=== PATIENT | female | born 1975 | race Caucasian/White ===

== ENCOUNTER 2016-12-02 23:24 | Observation (INO) | payer BC ==
[~2016-12-02] VITALS: Ht 170.2 cm; Wt 132.0 kg
[2016-12-03] MEDS ORDERED: SYNTHROID DPS0.2 MG PO (16:05)
[2016-12-03] MEDS ORDERED: ZOLOFT DPS50 MG PO (16:05)
[2016-12-03] MEDS ORDERED: NEURONTIN DPS300 MG PO (16:05)
[2016-12-03] MEDS ORDERED: BYSTOLIC5 MG PO (16:06)
[2016-12-03] MEDS ORDERED: BUSPAR5 MG PO (16:06)
[2016-12-03] MEDS ORDERED: NEXIUM40 MG PO (16:06)
--- NOTE | 2016-12-04 10:11 | CO ---
ADMIT: 12/03/2016 RM/LOC: 417 [facility] MR#: [id number] [address] [address] [place] [address] Consultation SEX: F AGE: 41 : 1975 DATE OF CONSULTATION: 12/03/2016 ATTENDING PHYSICIAN: Jimmy Nguyen CONSULTING PHYSICIAN: Jian Bray MD CHIEF COMPLAINT: Chest pain. HISTORY OF PRESENT ILLNESS: The patient is a 41-year-old female, we are familiar with her history of palpitations and presyncopal symptoms in the past. She was seen by us in clinic recently and had her Bystolic continued. She states that she has been in her usual state of health until last night. She had a sudden episode of abdominal pain and nausea, which was then followed by some sweating and chest discomfort. She also noticed that she was short of breath, called the ambulance, and was brought to the emergency room. There she received some nitroglycerin, which she states made her feel better. All in total, her symptoms lasted a little less than an hour. She is now having no further symptoms. She states that she has had similar episodes like this in the past, but this was worse than usual. Because of her risk factors for heart disease, she was concerned this may be a heart attack and came to the emergency room. She had no other complaints. The patient does have several risk factors for coronary disease including a history of some hypertension and family history. She had normal heart catheterization in 2009. She has also had a longstanding history of palpitations and presyncopal spells. She had no other complaints today. PAST MEDICAL HISTORY: Significant for: 1. Syncope and presyncope status post loop recorder placement in the past with loop recorder removal in 2014. 2. History of palpitations. 3. History of anxiety. 4. Asthma. 5. Back pain. 6. Bipolar disorder. 7. Crohn disease. 8. Depression. 9. Reflux. 10.Chronic headaches. 11.Hypothyroidism. 12.Left knee surgery. 13.Ventral hernia repair. 14.Colonoscopy. 15.Cholecystectomy. 16.History of . 17.Ectopic surgery. 18.Bladder sling surgery. ALLERGIES AND INTOLERANCES: Include Dilaudid, morphine, iodine, and ADMIT: 12/03/2016 RM/LOC: 417 [facility] MR#: [id number] [address] [address] [place] [address] Consultation SEX: F AGE: 41 : 1975 erythromycin. HOME MEDICATIONS: 1. Buspirone 7.5 mg twice daily. 2. Bystolic 2.5 mg. 3. Gabapentin 300 mg daily. 4. Medroxy prednisone 10 mg 10 days of each month. 5. Nexium 40 mg daily. 6. Synthroid 0.175 mg daily. 7. Vitamin D3 one tablet daily. 8. Zoloft 150 mg daily. FAMILY HISTORY: Significant for father who has had coronary artery disease. SOCIAL HISTORY: The patient has 1 child and has a previous history of smoking. She has occasional alcohol use. REVIEW OF SYSTEMS: GENERAL: Denies fever, chills, sweats, rash, or weight loss. She does have some occasional fatigue. EYES: Denies double vision, blurred vision, cataracts, or glaucoma. ENT: Denies hearing loss or problems with nose, mouth or throat. PULMONARY: Denies cough, sputum production, asthma, emphysema or bronchitis. Denies snoring loudly, wakefulness at night, or fatigue upon awakening. Some shortness of breath and some chest pain. GASTROINTESTINAL: Denies heartburn or difficulty swallowing. No change in bowel habits. Denies dark or bloody stools. No history of ulcers, hiatal hernia, or gallbladder or liver disease. Some nausea. She has some abdominal pain. GENITOURINARY: Denies hematuria, nocturia, urinary tract infection, or kidney stones. Denies history of renal insufficiency or failure. She has some dysuria. MUSCULOSKELETAL: Denies history of arthritis or gout. Denies muscle or joint pains. She has some arm and leg pains. ENDOCRINE: Denies history of thyroid dysfunction or diabetes. HEMATOLOGIC: Denies history of anemia, easy bruising, or cancer. NEUROLOGIC: Denies chronic headaches, dizziness, syncope, stroke, seizures or numbness or tingling. PSYCHIATRIC: Denies history of mental illness or feelings of depression. PHYSICAL EXAMINATION: VITAL SIGNS: Blood pressure was 106/57, heart rate 50, respirations 16, temperature 96.9 degrees Fahrenheit. SKIN: [place], warm and dry. EYES: Sclerae clear. No xanthelasmas. ENT: Oral mucosa is pink and moist. No jugular venous distention or carotid bruits. CHEST: Respirations are even and unlabored. Lungs are clear to auscultation. HEART: Regular rate and rhythm. Normal S1, S2. No murmurs, rubs or gallops. ABDOMEN: Soft and nontender. ADMIT: 12/03/2016 RM/LOC: 417 [facility] MR#: [id number] [address] [place] [id number] [place] [address] Consultation SEX: F AGE: 41 : 1975 MUSCULOSKELETAL: Gait is normal. EXTREMITIES: Peripheral pulses palpable. No clubbing, cyanosis or edema. PSYCHIATRIC: Alert and oriented. Mood and affect are appropriate. ASSESSMENT: 1. Chest pain. 2. Hypertension. 3. Possible vagal reaction. PLAN: In discussing this case with the patient, her symptoms make me suspicious more for vagal reaction than a cardiac cause. Generally starts with abdominal pain or nausea and then proceeds to sweating and chest pain. She has had a previous heart catheterization in the past which was normal. Her enzymes to this point have been negative as has her EKG. My plan will be to see if the 3rd set of enzymes are negative and if they are, she can be discharged home with an outpatient echocardiogram. We will then see her in followup and decide if a stress test is warranted. With a normal heart catheterization in the past and her young age, I think it is less likely that she would have developed coronary disease at this point in her life. Jian Bray MD/ candelario JOB #: [id number] CC: Jimmy Nguyen, Attending Physician Jimmy Nguyen, Family Physician Jimmy Nguyen MD
--- NOTE | 2016-12-04 13:56 | NUR ---
Pt was a SAD person referral and was discharged before social work spoke with pt. SWS called and followed up with pt today. Pt admits to attempting to harm self when she was a teenager. Deny any attempts since then. Pt does not see a mental health professional. Pt states she takes two anti-depressant medications. Deny current thoughts of self harm.
--- NOTE | 2016-12-05 07:42 | ER ---
ADMIT: 12/03/2016 RM/LOC: 417 [facility] MR#: [id number] [address] [address] [place] [address] Emergency Room Report SEX: F AGE: 41 : 1975 DATE: 12/02/2016 TIME: 4 Please refer to my T-sheet for complete H and P. HISTORY OF PRESENT ILLNESS: Briefly, the patient is a 41-year-old who comes in with chest pain. It came on all of a sudden about 40 minutes ago, it radiated up to her neck. She felt sweaty, short of breath, pressure-type pain. Rated it 4/10. She was given nitroglycerin and aspirin and her pain was resolved by the time she gets here. PAST MEDICAL HISTORY: She has history of irregular heartbeat, high blood pressure, hypothyroid. FAMILY HISTORY: Heart disease. She does not smoke. PHYSICAL EXAMINATION: VITAL SIGNS: Her blood pressure is 117/64, pulse 55, respirations 20, temp 96.9, saturating 96%. GENERAL: She is in no acute distress. HEENT: Grossly normal. LUNGS: Clear. HEART: Regular. ABDOMEN: Soft. SKIN: No rash. EMERGENCY DEPARTMENT COURSE: EKG was sinus rhythm, rate 47, no changes. Chest x-ray negative. CBC normal. Chemistries normal except potassium 3.4, magnesium 1.7. Cardiac enzymes negative. She remained pain-free, stable. We talked to Dr. Nguyen on-call, will admit to the hospital. ASSESSMENT: Chest pain, slightly atypical with multiple risk factors. PLAN: Admit to the hospital. Wilber Ricardo MD/ candelario JOB #: [id number] CC: Jimmy Nguyen MD, Attending Physician Jimmy Nguyen MD, Family Physician
--- NOTE | 2016-12-06 08:07 | HP ---
ADMIT: 12/03/2016 RM/LOC: 417 [facility] MR#: [id number] [id number] [place], [place] [address] [place] [address] History and Physical SEX: F AGE: 41 : 1975 DATE OF SERVICE: 12/03/2016 CHIEF COMPLAINT: Chest pain. HISTORY OF PRESENT ILLNESS: The patient is a 41-year-old white female, who normally sees Brittni Bird, nurse practitioner in our office. She states that she was getting ready for work last night around 11 p.m. and began to have chest pressure. She described this as a pressure in the left side of her chest which radiated up into the left side of her neck. Along with this chest pressure, she had dizziness, weakness, diaphoresis, nausea, and vomiting. She was worried about these symptoms because they did not go away and called 911. The squad came to her house. She had significant improvement and resolution of her symptoms with aspirin and sublingual nitroglycerin en route to the emergency room. Evaluation in the emergency room included an EKG that did not show any acute ischemic changes and a set of cardiac enzymes that were negative. Chest x-ray was negative as well. Because of her multiple risk factors for coronary artery disease, including a strong family history of heart disease, she was kept for further evaluation and cardiology evaluation. PAST MEDICAL HISTORY: Illnesses; the patient has history of hypothyroidism, depression, anxiety, hypertension, acid reflux, previous tachycardia, mild asthma, and obesity. MEDICATIONS: Include: 1. Levothyroxine 200 mcg daily. 2. Gabapentin 300 mg daily. 3. Zoloft 150 mg daily. 4. Buspirone 7.5 mg daily. 5. Bystolic 2.5 mg daily. 6. Nexium 40 mg daily. SURGERIES: The patient has had previous bladder sling, , ectopic , left ACL knee surgery, hernia repair x2, and gallbladder removal. ALLERGIES: IV CONTRAST AND ADHESIVE TAPE. SOCIAL HISTORY: The patient lives in [place] with her [place]. She works full-time at [employer]. She is a previous smoker who quit 2 years ago but had been smoking for 20 years prior to that. She rarely drinks alcohol and does not use drugs. FAMILY HISTORY: Significant coronary artery disease history with her father having an HI around age 40. She also has a sister who had heart surgery around age 43. There is a history of hypertension and high cholesterol in the family as well. REVIEW OF SYSTEMS: HEENT: Denies headache, blurry vision, ear pain, sinus symptoms, or difficulty swallowing. CARDIAC: History of tachycardia and hypertension and the above-mentioned ADMIT: 12/03/2016 RM/LOC: 417 [facility] MR#: [id number] [address] [address] [place] [address] History and Physical SEX: F AGE: 41 : 1975 chest pain. No prior known history of coronary artery disease. No palpitations at this time and currently no chest pain at this time. RESPIRATORY: No shortness of breath, wheezing, cough, or prior lung disease other than mild asthma. GASTROINTESTINAL: She did have some nausea and vomiting when she had her chest pain last night. No abdominal pain, nausea, vomiting, diarrhea, or constipation at this time. ENDOCRINE: No history of diabetes but she does have hypothyroidism. GENITOURINARY: No hematuria, dysuria, urinary frequency or prior bladder infections or kidney infections. She did have a previous bladder sling placed. MUSCULOSKELETAL: She has had some prior left knee problems. No unusual muscle or joint pain at this time. SKIN: No jaundice, cyanosis, rash, or bruising. HEMATOLOGIC: No history of blood clots or bleeding tendencies. PHYSICAL EXAMINATION: VITAL SIGNS: Most recent vitals include a temperature of 96.9, pulse 50 and regular, respiratory rate 16, blood pressure 106/57, and O2 saturations 94% on room air. GENERAL: The patient is alert and oriented. She does not appear to be in acute distress. She answers questions appropriately. HEENT: Ears clear bilaterally. Pupils equally round and reactive to light and accommodation bilaterally. Oropharynx moist without erythema or tonsillar enlargement. NECK: Supple without lymphadenopathy or JVD. No thyroid enlargement or tenderness. LUNGS: Clear bilaterally without wheezes, rhonchi, or rales. HEART: Mildly bradycardic but no murmurs. ABDOMEN: Obese, soft, nontender, and nondistended. No masses palpated. EXTREMITIES: With 1+ edema in the lower extremities bilaterally. Normal strength and range of motion in all extremities. NEUROLOGIC: No focal deficits. LABORATORY AND X-RAY DATA: EKG this morning showed bradycardia with heart rate of 47 beats per minute. No ischemic changes noted. Chest x-ray from time of admission was negative/normal. White blood cell count currently 7.0, hemoglobin 13.2, and platelet count 195. Sodium is 138, potassium 3.9, BUN 14, creatinine 1.0, glucose 82. Total cholesterol 186, triglycerides 174, AST 21, ALT 22, magnesium 2.0, HDL 29, and LDL 122. Cardiac enzymes are negative on 2 occasions at this time. ASSESSMENT: 1. Chest pain. 2. Strong family history of coronary artery disease. 3. Previous tobacco abuse (quit 2 years ago). ADMIT: 12/03/2016 RM/LOC: [address] [place] [address] MR#: [id number] [address] [place] [id number] [place] [place] [address] [place] [address] History and Physical SEX: F AGE: 41 : 1975 4. Bradycardia. 5. Obesity. 6. History of hypertension. PLAN: The patient has been admitted because of multiple risk factors for coronary artery disease and symptoms that are certainly suspicious for angina. She is currently chest pain free and has had 2 negative sets of cardiac enzymes. EKG shows sinus bradycardia, but no ischemic changes noted. Cardiology consult has been ordered. We will continue home medications and await Cardiology evaluation and recommendations. Jimmy Nguyen MD/ candelario JOB #: [id number] CC: Jimmy Nguyen, Attending Physician Jimmy Nguyen, Family Physician Brittni Bird
== END 2016-12-03 13:25 | disposition home or self-care (01) ==
LOC: ER 23:24 → 4PCU 12-03 00:30
PROVIDERS: ADMIT Family Medicine
DX: R07.9 Chest pain, unspecified (principal); E03.9 Hypothyroidism, unspecified; I10 Essential (primary) hypertension; Z23 Encounter for immunization; F41.9 Anxiety disorder, unspecified; F32.9 Major depressive disorder, single episode, unspecified; K21.9 Gastro-esophageal reflux disease without esophagitis; E66.9 Obesity, unspecified; J45.909 Unspecified asthma, uncomplicated; Z87.891 Personal history of nicotine dependence; Z79.899 Other long term (current) drug therapy; Z88.5 Allergy status to narcotic agent; Z91.041 Radiographic dye allergy status; Z91.048 Other nonmedicinal substance allergy status; Z82.49 Family history of ischemic heart disease and other diseases of the circulatory system; Z90.49 Acquired absence of other specified parts of digestive tract; Z68.42 Body mass index [BMI] 45.0-49.9, adult; Z98.890 Other specified postprocedural states